=== PATIENT | male | born 1955 | race Caucasian/White ===

== ENCOUNTER 2020-12-20 10:17 | Emergency (ER) | payer BC ==
[~2020-12-20] VITALS: Ht 170.2 cm; Wt 81.7 kg
[2020-12-20] MEDS ORDERED: CHOLESTEROL MED (10:33)
[2020-12-20] MEDS ORDERED: HTN (10:33)
[2020-12-20] MEDS ORDERED: NAPROSYN500 MG PO ×2 (12:05→12:09)
[2020-12-20] MEDS ORDERED: NORCO5 PO ×2 (12:05→12:09)
[2020-12-20 12:22] VITALS: BP 132/54
== END 2020-12-20 12:22 | disposition home or self-care (01) ==
LOC: M.ERS 10:17
DX: M79.621 Pain in right upper arm (principal); I10 Essential (primary) hypertension; E78.00 Pure hypercholesterolemia, unspecified